=== PATIENT | male | born 1995 | race Two or more races ===

== ENCOUNTER 2019-05-05 02:19 | Emergency (ER) | payer OTHER ==
[~2019-05-05] VITALS: Ht 193 cm; Wt 106.6 kg
[2019-05-05 03:59] VITALS: BP 139/81
== END 2019-05-05 04:35 | disposition home or self-care (01) ==
LOC: ER 02:23
DX: Z04.1 Encounter for examination and observation following transport accident (principal); V49.9XXA Car occupant (driver) (passenger) injured in unspecified traffic accident, initial encounter; Y93.89 Activity, other specified; Y92.69 Other specified industrial and construction area as the place of occurrence of the external cause; Y99.8 Other external cause status